=== PATIENT | female | born 1990 | race Caucasian/White ===

== ENCOUNTER 2019-06-04 19:49 | Emergency (ER) | payer OTHER ==
[~2019-06-04] VITALS: Ht 160 cm; Wt 64.4 kg
[2019-06-04 20:02] VITALS: BP 115/73
--- NOTE | 2019-06-04 20:10 | NUR ---
PT AMBULATED TO LOBBY WITH VSS.
--- NOTE | 2019-06-04 20:32 | NUR ---
PT TAKEN TO RAD VIA WHEECHAIR
--- NOTE | 2019-06-04 21:39 | NUR ---
29 Y/O FEMALE C/O L WRIST PAIN X1 DAY. SHE WENT TO [facility] FOR THE PAIN AND WAS PRESCRIBED TOOK MOTRIN WITH NO RELIEF. DENIES FALL/INJURY. NO DEFORMITY NOTED. SKIN ON THE RIGHT ARM IS RED AND TENDER TO TOUCH. PT. STATES A 9/10 CONTINOUS PAIN. ALLERGY: PEDIAZOLE PMH: ASTHMA
[2019-06-04] MEDS ORDERED: KETOROLAC 60 MG/2 ML VIAL IM ONE (21:40)
[2019-06-04] MEDS ORDERED: CLINDAMYCIN 150 MG CAP PO ONE (21:40)
[2019-06-04 22:26] VITALS: BP 115/73
--- NOTE | 2019-06-04 22:26 | NUR ---
THUMB SPICA PLACE ON BOTH LEFT AND RIGHT ARMS. PTS PMSC WNL.
--- NOTE | 2019-06-04 22:52 | NUR ---
Patient discharged with v/s stable. Written and verbal after care instructions given and explained. Patient alert, oriented and verbalized understanding of instructions. Ambulatory with steady gait. All questions addressed prior to discharge. ID band removed. Patient advised to follow up with PMD. Rx of doxycycline and tramadol given. Patient educated on indication of medication including possible reaction and side effects. Opportunity to ask questions provided and answered.
== END 2019-06-04 22:52 | disposition home or self-care (01) ==
LOC: MED 19:49
DX: L03.114 Cellulitis of left upper limb (principal); L03.113 Cellulitis of right upper limb; Z88.1 Allergy status to other antibiotic agents; Z88.8 Allergy status to other drugs, medicaments and biological substances
CPT/HCPCS: 29125; 73110; 96372; 99283; J1885; Q0092